=== PATIENT | male | born 1940 | race Caucasian/White ===

== ENCOUNTER 2017-06-28 09:15 | Outpatient (CLI) | payer MEDICARE, OTHER | END 2017-06-28 09:16 | disposition short-term general hospital (02) | LOC: EMS 09:15 | PROVIDERS: ATTEND Surgery | DX: R10.9 Unspecified abdominal pain (principal) | CPT/HCPCS: A0425; A0427 ==

== ENCOUNTER 2019-07-03 10:02 | Outpatient (CLI) | payer OTHER, MEDICARE ==
[2019-07-03 14:08] VITALS: BP 110/70
--- NOTE | 2019-07-03 14:08 | SLEEP CARE CONSULTATION ---
Information from patient questionnaire entered by Sylvia Caicedo. I have reviewed and concur with the information entered by Sylvia Caicedo. This document represents the service I personally performed and the decisions made by me, Claudia Lemus MD, [facility]. History of Present Illness Reason for Visit: New patient Chief Complaint: reports: Excessive daytime sleepiness, Fatigue Duration of Symptoms: 2 years Usual bedtime: 9:00 pm Time it takes to fall asleep: 30 minutes Observed to quit breathing while asleep: Yes Sleeps alone due to snoring: No Number of times waking at night: 3 Reasons for waking at night: reports: Pain, Bathroom Toss, Turn, or Twitch while sleeping: No Recalls having dreams: Yes Usually gets out of bed at: 9:00am Feels refreshed in the morning: No Morning headache: No Sleepy or fatigued during the day: Yes Ever fallen asleep while driving: No Takes day naps: Yes Dreams during day naps: No Prior sleep studies: No Additional HPI information: I had the pleasure of seeing Mr. Foss along with his today regarding the possibility of him having a sleep disorder. As you know, he is a 79 year old gentleman who complains of insomnia. He reports lying awake in bed at night for many hours. He naps 2 3 hours during the day. He had a sleep study at [facility] many years ago that ended prematurely because he had to be transported to the emergency room due to a heart condition. Normally, he goes to bed at 9 pm and gets out of bed at 8 am. He acts out dreams. He has been told that he snores loudly and irregularly at night. He has also been observed to stop breathing in his sleep. His can still sleep in the same bed. He can recall waking up on the average of 3 times during the night. Most of the time he wakes up because of having to use the bathroom. He has never awakened because of his own snoring, choking, or having to gasp for air. During the day he complains of feeling sleepy and fatigued. He has never fallen asleep while driving nor has had any accident due to sleepiness. - Parasomnia Symptoms Ever acted out dreams in sleep: Yes Problems with memory or concentration: Yes Subjective Initial Garland Sleepiness Scale score: 6 Past Medical History Past Medical History: reports: Hypertension, Coronary Heart Disease, Arrythmia, Anxiety, Depression, GERD, Other (E.D.) Social History The patient's occupation is a RE. Patient is and lives in [place]. Have you smoked in the past 12 months: Yes Cigarettes per day (20/pack): 20 (or more) Years of smokin (6-7) Quit date: 1976 Smoking Pack Years: 7.0 Alcohol use: No Caffeine use: Yes Caffeine amount and frequency: 2 cups Allergies and Home Medications Home medication list reviewed: Yes Allergy and home medication list: Medications: gabapentin, prazosin, trazodone, omeprazole, aspirin, escitalopram, diltiazem CD, alfuzosin, Bactrim Review of Systems Cardiovascular: reports: high blood pressure Gastrointestinal: reports: heartburn Urinary: reports: incontinence, impotence Neurological: reports: disorientation Psychiatric: reports: Attention Deficit Hyperactivity, anxiety, depression, mood disorder Ear/Nose/Throat: reports: dry mouth/throat Endocrine: reports: sluggishness, unexplained weakness Musculoskeletal: reports: joint pain, back pain Immunologic: reports: allergies to food or environment (crab meat) Physical Exam Vital signs obtained and entered by: Dr. Lemus Blood Pressure: 110/70 Cuff size: regular Heart Rate: 71 O2 Saturation: 95 Height: 5 ft 10 in Weight (kg): 90.718 kg Body Mass Index: 28.7 BMI Classification: Overweight Neck circumference: 16.5 HEENT: No craniofacial malformation Nostrils: patent to airflow Turbinates: normal Septum: midline Mouth and throat: narrow oropharynx Soft palate: long Hard palate: normal Uvula: normal Uvula visualization: 50% Mallampati Class II Tongue: normal in size Tonsils: small Chin and jaw: normal size and position Neck: normal w/o lymphadenopathy or thyromegaly Heart: regular rate and rhythm Lungs: clear bilaterally Abdomen: soft Extremities: no edema or clubbing Neurologic: intact Impression and Plan IMPRESSION: 1. Obstructive Sleep Apnea-Hypopnea Syndrome, as suggested by history of loud and irregular snoring, observed cessation of breath while asleep, frequent awakenings during the night, unrefreshed sleep, cognitive impairment, and daytime hypersomnolence. Narrow oropharynx and obesity are common predisposing factors for obstructive sleep apnea-hypopnea syndrome. Obstructive sleep apnea, left untreated, can increase the risk of recurrent paroxysmal atrial fibrillation. Pathophysiology of sleep-disordered breathing was discussed. I recommend proceeding to polysomnography to confirm the diagnosis and to assess severity. If he has significant sleep disordered breathing, a manual CPAP titration study will also be performed to find the optimal treatment pressure. I informed the patient of what the sleep studies involve and after some discussion, he agreed to proceed. Plan: 1. Schedule polysomnography + manual CPAP titration study and return in 1 to 2 weeks after the study to discuss result and initiate therapy. 2. Avoid long distance driving or when feeling sleepy. 3. Avoid alcohol, sedative and muscle relaxant around bedtime. 4. Attempt to lose weight. 5. Maintain a regular wake up time and spend no more than 8 hours in bed at night. Avoid naps. I spent 100% of this 15 minute visit face to face with the patient with greater than 50% of this was spent time counseling the patient and coordination of care.
== END 2019-07-03 10:03 | disposition home or self-care (01) ==
LOC: SC 10:02
PROVIDERS: ATTEND Internal Medicine Pulmonary Disease
DX: G47.10 Hypersomnia, unspecified (principal); R06.81 Apnea, not elsewhere classified; G47.8 Other sleep disorders; R06.83 Snoring; R41.89 Other symptoms and signs involving cognitive functions and awareness
CPT/HCPCS: 99203; 99212

== ENCOUNTER 2019-07-27 19:44 | Outpatient (CLI) | payer OTHER, MEDICARE | END 2019-07-27 19:45 | disposition home or self-care (01) | LOC: SC 19:44 | PROVIDERS: ATTEND Internal Medicine Pulmonary Disease | DX: G47.33 Obstructive sleep apnea (adult) (pediatric) (principal); G47.61 Periodic limb movement disorder | CPT/HCPCS: 95810 ==

== ENCOUNTER 2019-09-05 09:42 | Outpatient (CLI) | payer OTHER, MEDICARE ==
--- NOTE | 2019-09-05 10:17 | SLEEP CARE CONSULTATION ---
Information from patient questionnaire entered by Sylvia Caicedo. I have reviewed and concur with the information entered by Sylvia Caicedo. This document represents the service I personally performed and the decisions made by me, Claudia Lemus MD, [facility]. History of Present Illness Initial Winston Sleepiness Scale score: 6 Current Winston Sleepiness Scale score: 2 Additional HPI information: HPI: Mr. Foss returned with his for follow up of the sleep study he had on 07/27/19. The polysomnography showed that the patient had normal sleep efficiency. The sleep architecture was abnormal for sleep fragmentation and reduced amount of time spent in slow wave sleep (N3). Respiratory monitoring showed severe obstructive sleep apnea-hypopnea (AHI = 45.4) associated with frequent arousals, oxyhemoglobin desaturation and moderate hypoxia (momo oxygen saturation of 77%). Baseline oxygen saturation was normal. The respiratory events occurred independently of sleep stage and body position. (supine AHI = 48.7; non-supine = 42.76). Snore was loud in intensity. There was moderate periodic leg movement of sleep not contributing to the sleep fragmentation. Cardiac rhythm was paced at 70 beats per minute. The patient had tremors and limb movement throughout the night, most related to the respiratory events. The patient was informed of these findings. I explained to him the pathophysiology behind obstructive sleep apnea. We then spent quite a bit of time discussing different treatment options. For mild obstructive sleep apnea, surgery and oral appliance are alternatives to nasal CPAP therapy but in moderate or severe cases, nasal CPAP is the most effective and reliable treatment. Weight loss in an obese individual is strongly recommended. After some discussion, he opted to go with the nasal CPAP therapy. I explained to him how CPAP machine works and what to expect when using the machine. Allergies and Home Medications Drug allergies reviewed: Yes Home medication list reviewed: Yes Review of Systems Review of systems same as previous: Yes Physical Exam Weight: 200 lb Impression and Plan IMPRESSION: 1. Obstructive Sleep Apnea-Hypopnea Syndrome, very severe, associated with moderate hypoxemia and sleep fragmentation. Obviously this is the cause of the patients symptoms of unrefreshed sleep, cognitive impairment, and excessive daytime sleepiness. He will return for a manual CPAP/BiPAP titration study. PLAN: 1. Schedule a manual CPAP/BiPAP titration study. 2. Attempt to lose some weight and avoid alcohol consumption near bedtime. 3. Avoid driving (he does not drive at the present). 4. Return for follow up after the sleep study. I spent 100% of this 20 minute visit face to face with the patient with greater than 50% of this was spent time counseling the patient and coordination of care.
== END 2019-09-05 09:43 | disposition home or self-care (01) ==
LOC: SC 09:42
PROVIDERS: ATTEND Internal Medicine Pulmonary Disease
DX: G47.33 Obstructive sleep apnea (adult) (pediatric) (principal)
CPT/HCPCS: 99212; 99213

== ENCOUNTER 2019-12-01 20:25 | Outpatient (CLI) | payer OTHER, MEDICARE | END 2019-12-01 23:59 | disposition short-term general hospital (02) | LOC: EMS 20:25 | PROVIDERS: ATTEND Surgery | DX: R53.1 Weakness (principal); R29.6 Repeated falls; R42 Dizziness and giddiness | CPT/HCPCS: A0425; A0427 ==

== ENCOUNTER 2021-04-26 14:12 | Outpatient (CLI) | payer MEDICARE, OTHER | END 2021-04-26 14:13 | disposition critical access hospital (66) | LOC: EMS 14:12 | DX: R41.82 Altered mental status, unspecified (principal); S01.512A Laceration without foreign body of oral cavity, initial encounter; X58.XXXA Exposure to other specified factors, initial encounter | CPT/HCPCS: A0425; A0429 ==

== ENCOUNTER 2021-04-26 14:23 | Observation (INO) | payer MEDICARE, OTHER ==
--- NOTE | 2021-04-26 14:29 | ED Physician Documentation ---
PD HPI FOCAL NEURO - Stated complaint Stated Complaint: CODE STROKE - History obtained from History obtained from: Patient, Family, EMS - History of Present Illness Timing - onset: Enter time (1200), Today Timing - duration: Hours Timing - details: Abrupt onset, Still present Time of symptom onset unknown: Time of onset unknown Severity of deficit: Severe Weakness: Face, Arm, Hand, Leg, Foot, Left Associated symptoms: No: Headache, Nausea / vomiting, Seizure, Syncope, Head injury Baseline status: positive: A&OX3, ambulatory, indep Similar symptoms before: Has not had sx before Recently seen: Not recently seen - Additional information Additional information: 81-year-old male with history of coronary artery disease with a history of aortic stenosis s/p bovine valve replacement s/p CABG and s/p ablation has a pacer in place and today the was at his home his left to go to physical therapy at about 10 AM and she noted him to be in his usual state and when she returned at about 12:20 she noted that he was snoring loudly she went in to evaluate him found he had blood in his mouth and was not acting normal.She found that he was paralyzed on the left side and not speaking and she called 911. Medics arrived to find the patient with a left hemiparesis and blood on the outside of his mouth. He appears to have bit his tongue. Review of Systems Constitutional: denies: Fever Eyes: denies: Decreased vision Ears: denies: Ear pain Nose: denies: Congestion Throat: denies: Sore throat Cardiac: denies: Chest pain / pressure Respiratory: denies: Dyspnea, Cough GI: denies: Vomiting : denies: Dysuria Skin: denies: Rash Musculoskeletal: denies: Neck pain, Back pain, Extremity pain Neurologic: reports: Focal weakness, Difficulty speaking. denies: Generalized weakness, Headache PD PAST MEDICAL HISTORY - Present Medications Home Medications: Ambulatory Orders Medication Instructions Recorded Confirmed Alfuzosin HCl [Alfuzosin HCl ER] 1 tab PO DAILY 04/26/21 04/26/21 Aspirin [Aspirin EC] 1 tab PO DAILY 04/26/21 04/26/21 Cyanocobalamin (Vitamin B-12) 1 tab PO DAILY 04/26/21 04/26/21 [Vitamin B-12] Donepezil [Aricept] 10 mg PO DAILY 04/26/21 04/26/21 Escitalopram Oxalate 1 tab PO DAILY 04/26/21 04/26/21 Gabapentin [Neurontin] 100 mg PO BID 04/26/21 04/26/21 Latanoprost/Pf [Latanoprost 0.005% 1 drops TOP DAILY 04/26/21 04/26/21 Eye Drop] Omeprazole [PriLOSEC] 1 tab PO DAILY 04/26/21 04/26/21 Senna [Senokot] 1 tab PO DAILY PRN 04/26/21 04/26/21 diltiaZEM CD [Cardizem Cd] 1 tab PO DAILY 04/26/21 04/26/21 traZODone [Desyrel] 100 mg PO DAILY 04/26/21 04/26/21 - Allergies Allergies/Adverse Reactions: Allergies Allergy/AdvReac Type Severity Reaction Status Date / Time iodine Allergy Anaphylaxis Verified 04/26/21 15:09 crab meat Allergy Anaphylaxis Uncoded 04/26/21 15:09 PD ED PE NORMAL - Vitals Vital signs reviewed: Yes (Hypertensive) - General General: Well developed/nourished, Other (81-year-old male laying on a gurney looking to the right with blood on the left side of his mouth and he is minimally interactive.) - HEENT HEENT: Atraumatic, PERRL, EOMI - Neck Neck: Supple, no meningeal sign, No bony TTP - Cardiac Cardiac: RRR, No murmur - Respiratory Respiratory: No respiratory distress, Clear bilaterally - Abdomen Abdomen: Soft, Non tender - Back Back: No CVA TTP, No spinal TTP - Derm Derm: Normal color, Warm and dry, No rash - Extremities Extremities: No deformity, No edema - Neuro Eye Opening: Spontaneous Motor: Obeys Commands Verbal: Confused GCS Score: 14 - Psych Psych: Normal mood, Normal affect NIHSS - Time Time: 15:20 - Level of Consciousness Level of consciousness: (1) Not alert, but arousable by minor stimulation to obey, or answer LOC Questions: (0) Answers both Q's correct LOC Commands: (0) Performs both correctly - Gaze Best Gaze: (0) Normal - Visual Visual: (0) No loss - Facial Palsy Facial Palsy: (1) Minor paralysis - Motor Arms (both separate) Motor Arm (right): (0) No drift Motor Arm (left): (1) Drift - Motor Legs (both separate) Motor Leg (right): (0) No drift Motor Leg (left): (2) Some effort against gravity - Limb Ataxia Limb Ataxia: (1) Present in 1 limb - Sensory Sensory: (0) Normal - Best Language Best Language: (0) No aphasia - Dysarthria Dysarthria: (1) [id number] dysarthria - Extinction and Inattention (formally neg Extinction and inattention: (0) No abnormality - Total Score/Results Total Score/Result: 7 Results - Vitals Vitals: Vital Signs - 24 hr 04/26/21 04/26/21 04/26/21 15:01 15:50 16:17 Temperature 36.4 C L Heart Rate 88 83 82 Respiratory 16 17 21 Rate Blood Pressure 184/67 H 177/135 H 187/122 H O2 Saturation 93 95 97 Oxygen O2 Source Nasal cannula Oxygen Flow Rate 3 - EKG (time done) 1524 Rate: Rate (enter#) (85) Rhythm: Paced Compare to prior EKG: Old EKG unavailable Computer interpretation: Agree with computer - Labs Labs: Laboratory Tests 04/26/21 04/26/21 04/26/21 15:03 15:03 15:03 WBC 15.3 H RBC 4.67 L Hgb 14.9 Hct 42.2 MCV 90.4 MCH 31.9 H MCHC 35.3 RDW 12.8 Plt Count 145 MPV 10.8 Neut # (Auto) 14.1 H Lymph # (Auto) 0.5 L Gilliam # (Auto) 0.6 Eos # (Auto) 0.0 Baso # (Auto) 0.0 Absolute Nucleated RBC 0.00 Nucleated RBC % 0.0 PT 12.1 INR 1.1 Sodium 134 L Potassium 4.0 Chloride 101 Carbon Dioxide 23 Anion Gap 10.0 BUN 22 H Creatinine 1.4 H Estimated GFR (MDRD) 49 L Glucose 203 H Calcium 8.5 Total Bilirubin 0.7 AST 22 ALT 14 Alkaline Phosphatase 55 Total Protein 7.0 Albumin 4.1 Globulin 2.9 Albumin/Globulin Ratio 1.4 Lipase 29 Urine Color Urine Clarity Urine pH Ur Specific [place] Urine Protein Urine Glucose (UA) Urine Ketones Urine Occult Blood Urine Nitrite Urine Bilirubin Urine Urobilinogen Ur Leukocyte Esterase Urine RBC Urine WBC Ur Squamous Epith Cells Amorphous Sediment Urine Bacteria Urine Mucus Ur Microscopic Review Urine Culture Comments 04/26/21 16:04 WBC RBC Hgb Hct MCV MCH MCHC RDW Plt Count MPV Neut # (Auto) Lymph # (Auto) Gilliam # (Auto) Eos # (Auto) Baso # (Auto) Absolute Nucleated RBC Nucleated RBC % PT INR Sodium Potassium Chloride Carbon Dioxide Anion Gap BUN Creatinine Estimated GFR (MDRD) Glucose Calcium Total Bilirubin AST ALT Alkaline Phosphatase Total Protein Albumin Globulin Albumin/Globulin Ratio Lipase Urine Color YELLOW Urine Clarity CLEAR Urine pH 5.0 Ur Specific [place] 1.020 Urine Protein 30 H Urine Glucose (UA) 250 H Urine Ketones TRACE Urine Occult Blood SMALL H Urine Nitrite NEGATIVE Urine Bilirubin NEGATIVE Urine Urobilinogen 0.2 (NORMAL) Ur Leukocyte Esterase NEGATIVE Urine RBC 0-5 Urine WBC 0-3 Ur Squamous Epith Cells RARE Squamous Amorphous Sediment Rare Urine Bacteria None Seen Urine Mucus Few Strands Ur Microscopic Review INDICATED Urine Culture Comments NOT INDICATED - Rads (name of study) neck CTA Radiology: Prelim report reviewed (: 1. Moderate stenosis of the proximal left internal internal carotid artery. Mild stenosis of the proximal right internal carotid artery. No high-grade stenosis or occlusion of the vertebral arteries bilaterally), EMP read indepedently, See rad report head CTA Radiology: Prelim report reviewed (1. No acute intracranial abnormality. Cerebral volume loss and chronic microvascular ischemic disease. No high-grade stenosis or occlusion in anterior or posterior circulations.), EMP read indepedently, See rad report Chest Radiology: Prelim report reviewed (Impression: No acute cardiopulmonary disease.), EMP read indepedently, See rad report Procedures - IVC sono (time) 1515 Bedside IVC sono: IVC measures (cm) (1.00), Dehydration (est 1-2 liter deficit) PD MEDICAL DECISION MAKING - ED course Complexity details: considered differential, d/w patient, d/w family, d/w human performance consultant (Souleymane neuro-telestroke: Recommends conservative treatment and CT angio of the head and neck for potential large vessel occlusion. Contraindicated TPA as he is out of the stroke window. 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 He did bite his tongue consistent with possibility of seizure. I discussed the case with the stroke Dr. (Souleymane) and she recommends we place the patient on stroke care here at this hospital as there is no specific intervention indicated. The patient is reevaluated at 1615 with a marked improvement in his NIH stroke scale. He does still have some inattention to detail and appears to have some delay in execution of motor commands. He does have some a dementia at baseline the indicates he is not back to his complete baseline. Departure - Departure Disposition: ED Place in Observation Clinical Impression: Stroke-like symptoms, Seizure Discharge Date/Time: 04/26/21 18:36 NIHSS - Level of Consciousness Level of consciousness: (0) Alert, Keenly responsive LOC Questions: (1) Answers one Q correctly LOC Commands: (0) Performs both correctly - Gaze Best Gaze: (0) Normal - Visual Visual: (0) No loss - Facial Palsy Facial Palsy: (0) Normal, symmetrical movement - Motor Arms (both separate) Motor Arm (right): (0) No drift Motor Arm (left): (0) No drift - Motor Legs (both separate) Motor Leg (right): (0) No drift Motor Leg (left): (0) No drift - Limb Ataxia Limb Ataxia: (0) Absent - Sensory Sensory: (0) Normal - Best Language Best Language: (0) No aphasia - Dysarthria Dysarthria: (0) Normal - Extinction and Inattention (formally neg Extinction and inattention: (1) Visual,tactile,auditory,spatial, or personal inattention - Total Score/Results Total Score/Result: 2
[2021-04-26] MEDS ORDERED: IOVERSOL 320 100 ML VIAL IVP ONE (15:03)
--- NOTE | 2021-04-26 15:09 | XRAY Report ---
PROCEDURE: Chest 1 View X-Ray INDICATIONS: chest pain TECHNIQUE: One view of the chest was acquired. COMPARISON: Chest x-ray report, 05/10/2012. FINDINGS: Surgical changes and devices: There is a cardiac pacemaker in appropriate position. Sternotomy and CA BG. Lungs and pleura: No pleural effusions or pneumothorax. Lungs are clear. Mediastinum: Mediastinal contours appear normal. Heart size is normal. Bones and chest wall: No suspicious bony lesions. Overlying soft tissues appear unremarkable. IMPRESSION: No acute cardiopulmonary disease. Reviewed by: Jonh Padilla MD on 04/26/2021 3:08 PM PDT Approved by: Jonh Padilla MD on 04/26/2021 3:08 PM PDT Station ID: [id number]
[2021-04-26] MEDS ORDERED: SODIUM CHLORIDE 0.9% 1,000 ML IV STA (15:10)
[2021-04-26 15:16] LABS: BASOPHILS % (AUTO) 0.2 %; HCT - HEMATOCRIT 42.2 % (42.0-52.0); HGB - HEMOGLOBIN 14.9 g/dL (14.0-18.0); LYMPHOCYTES # (AUTO) 0.5 10^3/uL (1.5-3.5); MEAN CORPUSCULAR HEMOGLOBIN 31.9 pg (27.0-31.0); MEAN CORPUSCULAR HGB CONC 35.3 g/dL (32.0-36.0); MEAN CORPUSCULAR VOLUME 90.4 fL (80.0-94.0); MEAN PLATELET VOLUME 10.8 fL (7.4-11.4); MONOCYTES # (AUTO) 0.6 10^3/uL (0.0-1.0); MONOCYTES % (AUTO) 3.8 %; NEUTROPHILS # (AUTO) 14.1 10^3/uL (1.5-6.6); PLT - PLATELET COUNT 145 10^3/uL (130-450); RED BLOOD COUNT 4.67 10^6/uL (4.70-6.10); RED CELL DISTRIBUTION WIDTH 12.8 % (12.0-15.0); WHITE BLOOD COUNT 15.3 x10^3/uL (4.8-10.8)
[2021-04-26 15:27] LABS: ALBUMIN 4.1 g/dL (3.2-5.5); ALBUMIN/GLOBULIN RATIO 1.4 (1.0-2.2); BILIRUBIN,TOTAL 0.7 mg/dL (0.2-1.0); CALCIUM 8.5 mg/dL (8.5-10.3); CREATININE 1.4 mg/dL (0.6-1.2)
--- NOTE | 2021-04-26 15:39 | CT Report ---
PROCEDURE: ANGIO HEAD W/WO INDICATIONS: L sided facial droop CONTRAST: IV CONTRAST: Optiray 320 ml: 80 PO CONTRAST: *NO PO CONTRAST TECHNIQUE: Precontrast 4.5 mm thick angled axial sections acquired from the foramen magnum to the vertex. Afte r the administration of intravenous contrast, 1 mm thick sections acquired through the [place] of [place] is. Postcontrast 4.5 mm thick sections then re-acquired from the foramen magnum to the vertex. 3-di mensional pxtjuol-sbywxrcdn-dxvdccjrqi (MIP) and/or volume rendering reformats were acquired of the c entral intracranial vasculature. For radiation dose reduction, the following was used: automated ex posure control, adjustment of mA and/or kV according to patient size. COMPARISON: Not available. FINDINGS: Image quality: Suboptimal due to motion artifacts. Anterior circulation: Intracranial internal carotid arteries are normal in size and flow. The flow within the paired anterior cerebral arteries is normal and symmetric. The flow within the middle cer ebral arteries is normal and symmetric. The anterior communicating artery is seen. No aneurysms are seen. Posterior circulation: Visualized portions of the vertebral arteries demonstrate normal caliber, and join to form a normal appearing basilar artery. Flow within the posterior cerebral arteries is norm al and symmetric. No aneurysms are seen. CSF spaces: Ventricles are normal in size and shape. Basal cisterns are patent. No extra-axial flu id collections. Brain: There is mild cerebral volume loss. Small foci of hypodensities in insular cortex are most li shelli old chronic small vessel ischemic change. No midline shift. No intracranial bleeds or masses. Skull and face: Calvarium and facial bones appear intact, without suspicious lesions. Sinuses: Bilaterally maxillary sinus mucus retention cysts.. IMPRESSION: 1. No acute intracranial abnormality. 2. Cerebral volume loss and chronic microvascular ischemic disease. 3. No high-grade stenosis or occlusion in anterior or posterior circulations. Reviewed by: Jonh Padilla MD on 04/26/2021 3:38 PM PDT Approved by: Jonh Padilla MD on 04/26/2021 3:38 PM PDT Station ID: [id number]
--- NOTE | 2021-04-26 15:39 | CT Report ---
PROCEDURE: ANGIO NECK W INDICATIONS: L sided facial droop, L neck pain CONTRAST: IV CONTRAST: Optiray 320 ml: 80 PO CONTRAST: *NO PO CONTRAST TECHNIQUE: After the administration of intravenous contrast, 1.5 mm axial sections acquired from the aortic arch to the [place] of [place]. Coronal 3-D maximum intensity projection (MIP) and/or volume rendering ref ormats were then performed. For radiation dose reduction, the following was used: automated exposur e control, adjustment of mA and/or kV according to patient size. COMPARISON: None. FINDINGS: Image quality: Suboptimal opacification of neck vessels. Motion artifacts are present. Carotid system: The great vessels demonstrate a conventional anatomy as they arise from the aortic a rch. The origins of the common carotid arteries appear patent. The common carotid arteries demonstr ate normal calibers and courses. There are calcified and soft plaques with focal thickening at the ca rotid bifurcations bilaterally. There is moderate stenosis (~50-60%) of the proximal left internal ca rotid artery just beyond the bifurcation. Mild stenosis of the right proximal internal carotid artery (~20%). Bifurcation regions appear normal bilaterally. The internal carotid arteries demonstrate no rmal caliber and course. Posterior circulation: The origins of the vertebral arteries appear patent. The more superior porti ons of the vertebral arteries demonstrate normal course and caliber. They join to form a normal appe aring basilar artery. Soft tissues: Visualized neck soft tissues demonstrate no suspicious abnormalities. The thyroid is normal in size and there are no incidental findings. Bones: No suspicious bony lesions. Visualized cervical spine appears normally aligned. Moderate t o severe degenerative disc disease in the lower cervical spine. IMPRESSION: 1. 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 2. Mild stenosis of the proximal right internal carotid artery. 3. No high-grade stenosis or occlusion in vertebral arteries bilaterally. The estimate of stenosis included in the report of the imaging study was calculated using the NASCET method CLINICAL RECOMMENDATION STATEMENTS: In patients <35 years with an ITN detected on CT, MRI, or extrathyroidal ultrasound, the Committee re commends further evaluation with dedicated thyroid ultrasound if the nodule is ?1 cm and has no suspi cious imaging features, and if the patient has normal life expectancy. In patients ?35 years with an ITN detected on CT, MRI, or extrathyroidal ultrasound, the Committee re commends further evaluation with dedicated thyroid ultrasound if the nodule is ?1.5 cm and has no adina picious imaging features, and if the patient has normal life expectancy. (ACR, 2014) Reviewed by: oJnh Padilla MD on 04/26/2021 3:37 PM PDT Approved by: Jonh Padilla MD on 04/26/2021 3:37 PM PDT Station ID: [id number]
[2021-04-26 16:25] LABS: BILIRUBIN,URINE NEGATIVE (NEGATIVE); CLARITY,URINE CLEAR (CLEAR); GLUCOSE, URINE (UA) 250 mg/dL (NEGATIVE); KETONES,URINE (UA) TRACE mg/dL (NEGATIVE); LEUKOCYTE ESTERASE, URINE NEGATIVE (NEGATIVE); NITRITE,URINE NEGATIVE (NEGATIVE); OCCULT BLOOD,URINE SMALL (NEGATIVE); PROTEIN,URINE 30 mg/dL (NEGATIVE); UROBILINOGEN,URINE 0.2 (NORMAL) E.U./dL (NORMAL)
[2021-04-26 16:30] LABS: AMORPHOUS SEDIMENT,UR Rare /LPF; BACTERIA,URINE None Seen /HPF (None Seen); MUCUS,URINE Few Strands; RBC,URINE 0-5 /HPF (0-5); SQUAMOUS EPITHELIAL CELL,UR RARE Squamous (<= Few); WBC,URINE 0-3 /HPF (0-3)
[2021-04-26] MEDS ORDERED: ACETAMINOPHEN 325 MG TABLET PO PRN (16:43)
[2021-04-26] MEDS ORDERED: SODIUM CHLORIDE FLUSH 0.9% 10 ML SYRINGE IVP PRN (16:43)
[2021-04-26] MEDS ORDERED: ONDANSETRON 4 MG/2 ML VIAL IVP PRN (16:43)
--- NOTE | 2021-04-26 16:57 | HISTORY & PHYSICAL EXAMINATION ---
Chief Complaint - Chief Complaint Chief Complaint: Left sided weakness. History of Present Illness - Admitted From Admitted From:: Home - History Obtained From Records Reviewed: Yes History obtained from: Patient, Spouse, ER Physician, EMR Exam Limitations: Patient is somewhat confused and unable to provide a meaningful history. - History of Present Illness HPI Comment/Other: This is a 81-year-old male with a past medical history significant for coronary artery disease status post CABG, aortic stenosis status post valve replacement, atrial fibrillation status post pacemaker, dementia who presents today after his found him minimally responsive at home this morning. The history is obtained from the patient's as he still appears somewhat confused and unable to provide a meaningful history. She states she went to physical therapy this morning at 10 AM and when she returned home, she found the patient quite lethargic and barely responsive. He was looking at her with a blank stare. She noticed that his mouth was covered with blood and that he had bit his tongue. She immediately called EMS and upon their arrival, they noticed that he had left-sided upper and lower extremity weakness and the concern was for a stroke. The patient's tells me that in hindsight, he appeared to be fatigued over the past couple of days. She states his last meal was yesterday evening. He has had no changes in his medications. No prior history of seizures or stroke. He did not take aspirin this morning as he normally does. He has never been on anticoagulation for his atrial fibrillation. The patient is normally independent and ambulates on his own. He does have early mild dementia. The patient currently denies any pain. He reports no dyspnea, chest pain. He is able to tell me he is at the hospital but cannot tell me why. In the emergency department, he underwent a CT of the head which showed no intracranial hemorrhage. 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 Neurology was contacted and he was not a candidate for TPA given he was outside of the window. Given the above findings, medicine was consulted for admission. We did discuss goals of care and the patient was unable to come up with a decision. I discussed this with him and his that we will make him a full code for the time being given he cannot decide. History - Past Medical History Cardiovascular: reports: Hypertension, Coronary artery disease, Atrial fibrillation Neuro: reports: Dementia : reports: Benign prostate hypertrophy Psych: reports: Depression Other Past Medical History: cardia ablation - Past Surgical History Cardiovascular: reports: CABG, Valve replacement, Pacemaker - Family & Social History Family History Comment/Other: To his 's knowledge, his mother had a history of dementia and she believes his grandmother had a stroke. Living arrangement: At home Living Situation: With spouse/s.o. Social History Notes: He lives at home with his , Cat. He is a retired EMT. He has remote smoking history but quit in the . He rarely drinks alcohol. Meds/Allgy - Home Medications Home Medications: Ambulatory Orders Medication Instructions Recorded Confirmed Alfuzosin HCl [Alfuzosin HCl ER] 1 tab PO DAILY 04/26/21 04/26/21 Aspirin [Aspirin EC] 1 tab PO DAILY 04/26/21 04/26/21 Cyanocobalamin (Vitamin B-12) 1 tab PO DAILY 04/26/21 04/26/21 [Vitamin B-12] Donepezil [Aricept] 10 mg PO DAILY 04/26/21 04/26/21 Escitalopram Oxalate 1 tab PO DAILY 04/26/21 04/26/21 Gabapentin [Neurontin] 100 mg PO BID 04/26/21 04/26/21 Latanoprost/Pf [Latanoprost 0.005% 1 drops TOP DAILY 04/26/21 04/26/21 Eye Drop] Omeprazole [PriLOSEC] 1 tab PO DAILY 04/26/21 04/26/21 Senna [Senokot] 1 tab PO DAILY PRN 04/26/21 04/26/21 diltiaZEM CD [Cardizem Cd] 1 tab PO DAILY 04/26/21 04/26/21 traZODone [Desyrel] 100 mg PO DAILY 04/26/21 04/26/21 - Allergies Allergies/Adverse Reactions: Allergies Allergy/AdvReac Type Severity Reaction Status Date / Time iodine Allergy Anaphylaxis Verified 04/26/21 15:09 crab meat Allergy Anaphylaxis Uncoded 04/26/21 15:09 Review of Systems - Cardiovascular Cariovascular: denies: Chest pain, Exertional dyspnea, Decr. exercise tolerance - Gastrointestinal Gastrointestinal: denies: Abdominal pain, Nausea, Vomiting - Neurological Neurological: denies: General weakness, Focal weakness - All Other Systems All Other Systems: reports: Other (Review of systems is limited due to his confusion.) Prior Level of Functionality: He ambulates on his own at baseline. He does have mild dementia. Exam - Vital Signs Reviewed Vital Signs: Yes Vital Signs: Vital Signs x48h Temp Pulse Resp BP Pulse Ox 04/26/21 15:50 83 17 177/135 H 95 04/26/21 15:01 36.4 C L 88 16 184/67 H 93 - Physical Exam General Appearance: positive: No acute distress, Alert Eyes Bilateral: positive: Normal inspection, PERRL, EOMI, Conjunctivae nml ENT: positive: ENT inspection nml, Other (There is dried blood noted over his tongue. There is a small laceration over his tongue without active bleeding.) Neck: positive: Nml inspection Respiratory: positive: No respiratory distress. negative: Wheezes, Rales Cardiovascular: positive: Regular rate & rhythm, No murmur. negative: Tachycardia Abdomen: positive: Non-tender, No distention. negative: Tenderness Skin: positive: Warm, Dry Extremities: positive: No pedal edema Neurologic/Psychiatric: positive: Motor nml, Sensation nml, Disoriented to time, Other (He has 5 out of 5 motor strength in all of his extremities. No dysmetria noted). negative: Disoriented to person, Disoriented to place, Facial droop, Slurred/abnml speech Conclusion/Plan - Problem List (1) Stroke-like symptoms Conclusion/Plan: He presented with left upper and lower extremity weakness along with a facial droop. He was not a candidate for TPA given he was outside of the timeframe. 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 There is no evidence of hemorrhage. It is unclear at this time if he had a stroke or if this was Delbert's paralysis after a seizure. He has no focal deficits but is somewhat confused which could be a postictal state. We will place in observation. We cannot obtain an MRI due to the pacemaker. Given he did not take aspirin's morning, we will administer a full dose aspirin. Start him on statin. We will allow for permissive hypertension. We will repeat a CT tomorrow to look for development of an infarct. There is no echocardiogram available over the weekend but this will be recommended on an outpatient basis. Will monitor on telemetry. (2) Seizure Conclusion/Plan: There is concern for a possible seizure given there was bleeding from his mouth and it appears he bit his tongue. This may potentially cause a Delbert's paralysis and given his strokelike symptoms. CT revealed no acute abnormalities. We will consider repeating a CT tomorrow to evaluate for possible infarct. We will monitor his neuro status overnight. Seizure precautions. Given this is his first seizure, we will hold off on antiepileptics. (3) History of atrial fibrillation Conclusion/Plan: He is on diltiazem at home and has a pacemaker in place. We will hold diltiazem until after permissive hypertension. Monitor on telemetry. (4) Dementia Conclusion/Plan: Stable and at baseline. We will continue his home donepezil. (5) History of aortic valve replacement Conclusion/Plan: Stable. If he remains hospitalized until Wednesday we will obtain echocardiogram then otherwise this can be done on an outpatient basis. (6) BPH (benign prostatic hyperplasia) Conclusion/Plan: Will resume his home medications when appropriate. - Lab Results Lab results reviewed: Yes Carmelo Bones: 04/26/21 15:03 04/26/21 15:03 - Diagnostic Imaging Results Diagnostic Imaging Results: positive: Final report reviewed - EKG Results EKG Interpreted Independently: Yes EKG Findings: V paced. Core Measures - Anticipated LOS I expect patient to be DC'd or transferred within 96 hours.: Yes - Issues Hospital Issues and Management Plan: 81-year-old male presents with left-sided weakness and possible seizure. Concern is for stroke or Delbert's paralysis. Will place in observation to monitor his neuro status and repeat a CT in the morning. - DVT/VTE - Prophylaxis VTE/DVT Device ordered at admit?: Yes VTE/DVT Prophylaxis med ordered at admit?: Yes
[2021-04-26] MEDS ORDERED: SENNA 8.6 MG TABLET PO PRN (17:00)
--- OUTSIDE RECORDS SUMMARY | 2021-04-26 17:07 | EXTERNAL MEDICAL SUMMARY RPT | Continuity of Care Document ---
:1940 Demographics Phone Unavailable Preferred Language Unknown Marital Status Unknown Uatsdin Affiliation Unknown Race Unknown Ethnic Group Unknown Author Organization [facility] Address [address] [phone] Phone Allergies Encounters Medications Problems Results
[2021-04-26] MEDS ORDERED: ASPIRIN CHEW 81 MG TABLET PO STA (17:55)
[2021-04-26 18:39] LABS: INR 1.1 (0.8-1.2); PT - PROTHROMBIN TIME 12.1 secs (9.9-12.6)
[2021-04-26] MEDS: SODIUM CHLORIDE FLUSH 0.9% 10 ML SYRINGE IVP SCH (20:10)
[2021-04-26 20:11] LABS: B. PARAPERTUSSIS- RESP PCR PAN NOT DETECTED; B. PERTUSSIS- RESP PCR PANEL NOT DETECTED; C. PNEUMONIAE- RESP PCR PANEL NOT DETECTED; CORONAVIRUS 229E-RESP PCR NOT DETECTED; CORONAVIRUS HKU1-RESP PCR NOT DETECTED; CORONAVIRUS NL63-RESP PCR NOT DETECTED; CORONAVIRUS OC43-RESP PCR NOT DETECTED; HUMAN METAPNEUMOVIRUS NOT DETECTED; INFLUENZA A- RESP PCR PANEL NOT DETECTED; INFLUENZA B - RESP PCR PANEL NOT DETECTED; M. PNEUMONIAE- RESP PCR PANEL NOT DETECTED; PARAINFLUENZA VIRUS 1 NOT DETECTED; PARAINFLUENZA VIRUS 2 NOT DETECTED; PARAINFLUENZA VIRUS 3 NOT DETECTED; PARAINFLUENZA VIRUS 4 NOT DETECTED; RHINOVIRUS/ENTEROVIRUS NOT DETECTED; RSV- RESP PCR PANEL NOT DETECTED; SARS-CoV-2 -RESP PCR PANEL NOT DETECTED
[2021-04-26] MEDS: LACTATED RINGERS 1,000 ML IV SCH (20:24)
[2021-04-26] MEDS ORDERED: GABAPENTIN 100 MG CAPSULE PO SCH (21:00)
[2021-04-26] MEDS ORDERED: ATORVASTATIN 40 MG TABLET PO SCH (21:00)
[2021-04-26] MEDS ORDERED: LATANOPROST 0.005% OPHTH DROPS EACHEYE SCH (21:00)
[2021-04-27] MEDS: SODIUM CHLORIDE FLUSH 0.9% 10 ML SYRINGE IVP SCH ×2 (03:37→09:58)
[2021-04-27 05:24] LABS: BASOPHILS % (AUTO) 0.2 %; EOSINOPHILS % (AUTO) 0.1 %; HCT - HEMATOCRIT 36.8 % (42.0-52.0); HGB - HEMOGLOBIN 12.8 g/dL (14.0-18.0); LYMPHOCYTES # (AUTO) 1.1 10^3/uL (1.5-3.5); MEAN CORPUSCULAR HEMOGLOBIN 31.9 pg (27.0-31.0); MEAN CORPUSCULAR HGB CONC 34.8 g/dL (32.0-36.0); MEAN CORPUSCULAR VOLUME 91.8 fL (80.0-94.0); MEAN PLATELET VOLUME 10.7 fL (7.4-11.4); MONOCYTES # (AUTO) 0.5 10^3/uL (0.0-1.0); MONOCYTES % (AUTO) 4.5 %; NEUTROPHILS # (AUTO) 9.5 10^3/uL (1.5-6.6); NEUTROPHILS % (AUTO) 84.8 %; PLT - PLATELET COUNT 137 10^3/uL (130-450); RED BLOOD COUNT 4.01 10^6/uL (4.70-6.10); WHITE BLOOD COUNT 11.2 x10^3/uL (4.8-10.8)
[2021-04-27 05:29] LABS: CALCIUM 8.5 mg/dL (8.5-10.3); CREATININE 1.4 mg/dL (0.6-1.2); MAGNESIUM 2.2 mg/dL (1.7-2.8); POTASSIUM 3.9 mmol/L (3.5-5.0)
[2021-04-27] MEDS: LACTATED RINGERS 1,000 ML IV SCH (06:54)
[2021-04-27] MEDS ORDERED: PANTOPRAZOLE 40 MG TABLET PO SCH (07:00)
--- NOTE | 2021-04-27 07:22 | PHARMACY PROGRESS NOTE ---
- Best Possible Medication History Admit Date and Time: 04/26/21 2933 Processed by: Nursing Medication History completed: Yes Patient Interview: Pt interview ONLY source As the person ultimately responsible for medication therapy, providers are able to order a medication from an existing home medication list in [facility] via the "Reconcile Routine" prior to Confirmation of that medication by learning support services director. Such practice is discouraged except when the physician, in their clinical judgment, deems that a medical need exists for a medication without regard to previous use.
[2021-04-27] MEDS ORDERED: DONEPEZIL 5 MG TABLET PO SCH (09:00)
[2021-04-27] MEDS ORDERED: GABAPENTIN 100 MG CAPSULE PO SCH (09:00)
[2021-04-27] MEDS ORDERED: traZODone 50 MG TABLET PO SCH ×2 (09:00→21:00)
[2021-04-27] MEDS ORDERED: ENOXAPARIN 40 MG/0.4 ML SYRINGE SUBQ SCH (09:00)
[2021-04-27] MEDS ORDERED: ESCITALOPRAM 10 MG TABLET PO SCH (09:00)
[2021-04-27] MEDS ORDERED: ASPIRIN EC 325 MG TABLET PO SCH (12:00)
--- NOTE | 2021-04-27 13:33 | CT Report ---
PROCEDURE: HEAD WO INDICATIONS: Neuro deficit. Resolved. Eval for stroke. TECHNIQUE: Noncontrast 4.5 mm thick angled axial sections acquired from the foramen magnum to the vertex. For r adiation dose reduction, the following was used: automated exposure control, adjustment of mA and/or kV according to patient size. COMPARISON: 04/26/2021 FINDINGS: Image quality: Motion artifact is noted. CSF spaces: Basal cisterns are patent. No extra-axial fluid collections. Ventricles are normal in size and shape. Brain: No midline shift. No intracranial masses or hemorrhage. Borges-white matter interface is norm al. Age-appropriate brain parenchymal volume loss and chronic small vessel ischemic change can be se en. 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 Skull and face: Calvarium and visualized facial bones are intact, without suspicious lesions. Sinuses: Visualized sinuses and mastoids are clear. IMPRESSION: Stable noncontrast head CT. If there is strong clinical concern for a stroke, please consider a dedicated brain MRI for further e valuation (assuming that there is no contraindication to MRI). Reviewed by: Yuri Adorno MD on 04/27/2021 12:31 PM HUGO Approved by: Yuri Adorno MD on 04/27/2021 12:31 PM HUGO Station ID: [id number]
[2021-04-27] MEDS ORDERED: levETIRAcetam 250 MG TABLET PO SCH (14:00)
--- NOTE | 2021-04-27 14:01 | Discharge Plan ---
Discharge Plan Problem Reviewed?: Yes Disposition: Home, Self Care Condition: Stable Prescriptions: levETIRAcetam [Keppra] 500 mg PO BID #120 tablet Diet: Cardiac Activity Restrictions: Activity as Tolerated Instruction Topics: Levetiracetam tablets Health Concerns: You were admitted to the hospital initially because of concern for a stroke. 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 Fortunately, your deficits have resolved and you are now nearly back to your baseline. We did speak with neurology at [facility] who recommend starting you on Keppra 500 mg twice a day as this may have been possibly a seizure that caused this. We did repeat a CT scan of your head today which showed evidence of an old stroke but no acute stroke. 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 This should be followed up by your neurologist and a vascular surgery consult may be recommended. Plan of Treatment: We started you on a medication called Keppra which is to help prevent seizures. Please take 500 mg twice a day. Please follow-up with your neurologist as soon as possible. It would be a good idea to discuss trying a statin again given you had side effects in the past. You may also consider talking with your clay washer about switching the diltiazem to metoprolol. Care Goals: The goal is to prevent further seizures and to decrease your risk of stroke. Assessment: The patient's expressed understanding of the treatment plan. Additional Instructions or Follow Up instructions: Please follow-up with your neurologist as soon as possible. Please follow-up with your primary care provider in 1 week. Please return to the emergency department if you develop any new weakness, seizure, slurred speech. No Smoking: If you smoke, Please STOP! Call for help. Follow-up with: Cheikh Metz ARNP [Primary Care Provider] -
--- NOTE | 2021-04-27 14:12 | DISCHARGE SUMMARY ---
Discharge Summary Admit Date: 04/26/21 Discharge Date: 04/27/21 Discharging Provider: Felix Talley Primary Care Provider: Cheikh Metz Code Status: Attempt Resuscitation Condition at Discharge: Stable Discharge Disposition: 01 Home, Self Care - DIAGNOSES Admission Diagnoses: Strokelike symptoms Seizure History of atrial fibrillation Dementia History of aortic valve replacement BPH Discharge Diagnoses with Status of Each Condition: Strokelike symptoms - resolved. Seizure - resolved. History of atrial fibrillation - stable. Dementia - stable. History of aortic valve replacement - stable. BPH - stable. - HPI History of Present Illness: This is a 81-year-old male with a past medical history significant for coronary artery disease status post CABG, aortic stenosis status post valve replacement, atrial fibrillation status post pacemaker, dementia who presents today after his found him minimally responsive at home this morning. The history is obtained from the patient's as he still appears somewhat confused and unable to provide a meaningful history. She states she went to physical therapy this morning at 10 AM and when she returned home, she found the patient quite lethargic and barely responsive. He was looking at her with a blank stare. She noticed that his mouth was covered with blood and that he had bit his tongue. She immediately called EMS and upon their arrival, they noticed that he had left-sided upper and lower extremity weakness and the concern was for a stroke. The patient's tells me that in hindsight, he appeared to be fatigued over the past couple of days. She states his last meal was yesterday evening. He has had no changes in his medications. No prior history of seizures or stroke. He did not take aspirin this morning as he normally does. He has never been on anticoagulation for his atrial fibrillation. The patient is normally independent and ambulates on his own. He does have early mild dementia. The patient currently denies any pain. He reports no dyspnea, chest pain. He is able to tell me he is at the hospital but cannot tell me why. In the emergency department, he underwent a CT of the head which showed no intracranial hemorrhage. 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 Neurology was contacted and he was not a candidate for TPA given he was outside of the window. Given the above findings, medicine was consulted for admission. We did discuss goals of care and the patient was unable to come up with a decision. I discussed this with him and his that we will make him a full code for the time being given he cannot decide. - HOSPITAL COURSE Hospital Course: The patient was placed in observation given his initial strokelike symptoms and concern for seizure. He was also initially still quite confused while in the emergency department. We suspect that he may have had Delbert's paralysis after a seizure given he had a tongue laceration. Initial CT showed no evidence of stroke. CTA of the head showed no significant stenosis. CTA of the neck showed moderate stenosis of the left internal carotid artery. He was given aspirin and started on Lipitor 40 mg in the evening. We could not obtain MRI due to the fact that he has a pacemaker. We did not obtain an echocardiogram as it is not available over the weekend. We did allow for permissive hypertension initially given the concern for possible stroke. His left upper and lower extremity weakness as well as facial droop resolved while in the emergency department. His confusion also improved throughout this hospitalization and he is now nearly back to baseline. He is conversing much more and his reports that his sense of humor has returned. We did repeat a CT of the head about 24 hours later to ensure there is no development of an infarct. 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 I did speak with neurology at [facility] to discuss if there would be a benefit for Keppra. They did recommend starting Keppra for the time being at 500 mg twice daily and to have the patient follow-up with his neurologist. I did discuss with the patient's regarding this recommendation and we will start him on Keppra on discharge. We also discussed discharging him on a statin but his informed me that he did not tolerated in the past and there was concern because of its interaction with diltiazem. I have recommended that she follow-up with his primary care provider or neurologist to discuss the benefit of initiating a statin once again. 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 - ALLERGIES Allergies/Adverse Reactions: Allergies Allergy/AdvReac Type Severity Reaction Status Date / Time iodine Allergy Anaphylaxis Verified 04/26/21 15:09 crab meat Allergy Anaphylaxis Uncoded 04/26/21 15:09 - MEDICATIONS Home Medications: Ambulatory Orders Medication Instructions Recorded Confirmed Alfuzosin HCl [Alfuzosin HCl ER] 1 tab PO DAILY 04/26/21 04/26/21 Aspirin [Aspirin EC] 1 tab PO DAILY 04/26/21 04/26/21 Cyanocobalamin (Vitamin B-12) 1 tab PO DAILY 04/26/21 04/26/21 [Vitamin B-12] Donepezil [Aricept] 10 mg PO DAILY 04/26/21 04/26/21 Escitalopram Oxalate 1 tab PO DAILY 04/26/21 04/26/21 Gabapentin [Neurontin] 100 mg PO DAILY 04/26/21 04/27/21 Latanoprost/Pf [Latanoprost 0.005% 1 drops EACHEYE DAILY 04/26/21 04/27/21 Eye Drop] Omeprazole [PriLOSEC] 1 tab PO DAILY 04/26/21 04/26/21 Senna [Senokot] 1 tab PO DAILY PRN 04/26/21 04/26/21 diltiaZEM CD [Cardizem Cd] 1 tab PO DAILY 04/26/21 04/26/21 traZODone [Desyrel] 100 mg PO DAILY 04/26/21 04/26/21 Gabapentin [Neurontin] 200 mg PO QPM 04/27/21 04/27/21 levETIRAcetam [Keppra] 500 mg PO BID #120 tablet 04/27/21 - PHYSICAL EXAM AT DISCHARGE General Appearance: positive: No acute distress, Alert Eyes Bilateral: positive: Normal inspection, Conjunctivae nml ENT: positive: ENT inspection nml Neck: positive: Nml inspection Respiratory: positive: No respiratory distress. negative: Wheezes, Rales Cardiovascular: positive: Regular rate & rhythm. negative: Tachycardia, Systolic murmur Abdomen: positive: Non-tender, No distention. negative: Tenderness Skin: positive: Warm, Dry Extremities: positive: No pedal edema Neurologic/Psychiatric: positive: Motor nml, Sensation nml, Disoriented to time, Other (No dysmetria noted.). negative: Disoriented to person, Disoriented to place, Weakness, Facial droop, Slurred/abnml speech - LABS Result Diagrams: 04/27/21 04:55 04/27/21 04:55 - DIAGNOSTIC IMAGING Diagnostic Imaging Results: Final report reviewed Diagnostic Imaging Results Comments: CTA of the head on April 26 showed no acute intracranial abnormality. Cerebral volume loss and chronic microvascular ischemic disease. No high-grade stenosis or occlusion in anterior or posterior circulations. CTA of the neck on April 26 showed moderate stenosis of the proximal left internal carotid artery. Mild stenosis of the proximal right internal carotid artery. No high-grade stenosis or occlusion in the vertebral arteries bilaterally. 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 Stable noncontrast head CT. - FOLLOW UP Follow Up: She was asked to follow-up with his neurologist as soon as possible and follow- up with his primary care provider was recommended in 1 week. - TIME SPENT Time Spent in Discharge (Minutes): 32
[2021-04-27 17:02] VITALS: BP 164/87
[2021-04-28] MEDS ORDERED: TAMSULOSIN 0.4 MG CAPSULE PO SCH (09:00)
== END 2021-04-27 17:07 | disposition home or self-care (01) ==
LOC: EDBD → EDUNIT# → ED 14:23 → SUPCPDRO 14:23 → MS2 16:43
PROVIDERS: ADMIT Internal Medicine; ATTEND Internal Medicine
DX: G81.94 Hemiplegia, unspecified affecting left nondominant side (principal); R29.810 Facial weakness; I65.22 Occlusion and stenosis of left carotid artery; R56.9 Unspecified convulsions; I48.91 Unspecified atrial fibrillation; F03.90 Unspecified dementia, unspecified severity, without behavioral disturbance, psychotic disturbance, mood disturbance, and anxiety; Z95.2 Presence of prosthetic heart valve; N40.0 Benign prostatic hyperplasia without lower urinary tract symptoms; I25.10 Atherosclerotic heart disease of native coronary artery without angina pectoris; Z95.1 Presence of aortocoronary bypass graft; Z95.0 Presence of cardiac pacemaker; R41.0 Disorientation, unspecified; Z20.822 Contact with and (suspected) exposure to COVID-19; Z79.82 Long term (current) use of aspirin; Z79.899 Other long term (current) drug therapy; S01.512A Laceration without foreign body of oral cavity, initial encounter; X58.XXXA Exposure to other specified factors, initial encounter; Y92.009 Unspecified place in unspecified non-institutional (private) residence as the place of occurrence of the external cause; Z86.73 Personal history of transient ischemic attack (TIA), and cerebral infarction without residual deficits; I10 Essential (primary) hypertension; E86.0 Dehydration
CPT/HCPCS: 36415; 70450; 70496; 70498; 71045; 80048; 80053; 81001; 83690; 83735; 84443; 85025; 85610; 87631; 93005; 99284; 99285; A9270; G0378; J7120; Q9967; 0202U; 81003; 87086

== ENCOUNTER 2021-10-05 15:54 | Outpatient (CLI) | payer MEDICARE, OTHER | END 2021-10-05 15:55 | disposition critical access hospital (66) | LOC: EMS 15:54 | DX: R55 Syncope and collapse (principal) | CPT/HCPCS: A0425; A0427 ==

== ENCOUNTER 2021-10-05 16:02 | Emergency (ER) | payer MEDICARE, OTHER ==
--- NOTE | 2021-10-05 16:10 | ED Physician Documentation ---
History of Present Illness - Stated complaint Stated Complaint: SYNCOPAL EPISODE - History obtained from History obtained from: Patient, EMS - Additonal information Additional information: This is a pleasantly demented 81-year-old gentleman who presents by ambulance after syncopal episode. Reportedly was out chopping wood with the and passed out. No clear evidence of injury. Patient is without complaints right now. He was noted to be orthostatic by EMS. He has a history of coronary disease status post bypass, aortic stenosis with history of valve replacement, not on anticoagulation so presumably biological valve. He has a pacemaker in place. Review of Systems Unable to obtain: Dementia PD PAST MEDICAL HISTORY - Past Medical History Cardiovascular: Hypertension, Coronary artery disease, Atrial fibrillation Neuro: Dementia : Benign prostate hypertrophy Psych: Depression - Past Surgical History Cardiovascular: CABG, Valve replacement, Pacemaker - Present Medications Home Medications: Ambulatory Orders Medication Instructions Recorded Confirmed Alfuzosin HCl [Alfuzosin HCl ER] 1 tab PO DAILY 04/26/21 04/26/21 Aspirin [Aspirin EC] 1 tab PO DAILY 04/26/21 04/26/21 Cyanocobalamin (Vitamin B-12) 1 tab PO DAILY 04/26/21 04/26/21 [Vitamin B-12] Donepezil [Aricept] 10 mg PO DAILY 04/26/21 04/26/21 Escitalopram Oxalate 1 tab PO DAILY 04/26/21 04/26/21 Gabapentin [Neurontin] 100 mg PO DAILY 04/26/21 04/27/21 Latanoprost/Pf [Latanoprost 0.005% 1 drops EACHEYE DAILY 04/26/21 04/27/21 Eye Drop] Omeprazole [PriLOSEC] 1 tab PO DAILY 04/26/21 04/26/21 Senna [Senokot] 1 tab PO DAILY PRN 04/26/21 04/26/21 diltiaZEM CD [Cardizem Cd] 1 tab PO DAILY 04/26/21 04/26/21 traZODone [Desyrel] 100 mg PO DAILY 04/26/21 04/26/21 Gabapentin [Neurontin] 200 mg PO QPM 04/27/21 04/27/21 levETIRAcetam [Keppra] 500 mg PO BID #120 tablet 04/27/21 - Allergies Allergies/Adverse Reactions: Allergies Allergy/AdvReac Type Severity Reaction Status Date / Time iodine Allergy Anaphylaxis Verified 10/05/21 16:14 crab meat Allergy Anaphylaxis Uncoded 10/05/21 16:14 - Social History Does the pt smoke?: No Smoking Status: Never smoker Does the pt drink ETOH?: No Does the pt have substance abuse?: Yes PD ED PE NORMAL - Vitals Vital signs reviewed: Yes - General General: No acute distress, Other (He is alert and oriented to person but not place time or events. He is correct on his age.) - HEENT HEENT: PERRL, EOMI - Neck Neck: Supple, no meningeal sign, No bony TTP - Cardiac Cardiac: RRR, No murmur - Respiratory Respiratory: No respiratory distress, Clear bilaterally - Abdomen Abdomen: Normal bowel sounds, Soft, Non tender - Back Back: No CVA TTP, No spinal TTP - Derm Derm: Normal color, Warm and dry - Extremities Extremities: No edema, No calf tenderness / cord - Neuro Neuro: No motor deficit, No sensory deficit, Normal speech Results - Vitals Vitals: Vital Signs - 24 hr 10/05/21 10/05/21 10/05/21 16:10 16:20 17:09 Temperature 36.7 C Heart Rate 86 72 Heart Rate [ 77 Sitting] Heart Rate [ 72 Standing] Heart Rate [ 74 Supine] Respiratory 15 12 Rate Blood Pressure 110/79 110/79 Blood Pressure 109/68 [Sitting] Blood Pressure 122/69 [Standing] Blood Pressure 107/82 H [Supine] O2 Saturation 96 94 Oxygen O2 Source Room air - EKG (time done) 1617 Rate: Rate (enter#) (74) Rhythm: Paced - Labs Labs: Laboratory Tests 10/05/21 10/05/21 16:28 16:28 WBC 5.6 RBC 4.42 L Hgb 14.2 Hct 41.1 L MCV 93.0 MCH 32.1 H MCHC 34.5 RDW 12.3 Plt Count 139 MPV 10.6 Neut # (Auto) 4.2 Lymph # (Auto) 0.9 L [place] # (Auto) 0.3 Eos # (Auto) 0.1 Baso # (Auto) 0.0 Absolute Nucleated RBC 0.00 Nucleated RBC % 0.0 Sodium 136 Potassium 4.1 Chloride 99 L Carbon Dioxide 28 Anion Gap 9.0 BUN 21 H Creatinine 1.8 H Estimated GFR (MDRD) 37 L Glucose 109 H Calcium 8.8 Total Bilirubin 0.8 AST 22 ALT 14 Alkaline Phosphatase 45 Total Protein 6.9 Albumin 4.2 Globulin 2.7 Albumin/Globulin Ratio 1.6 Lipase 35 PD MEDICAL DECISION MAKING - ED course ED course: 81-year-old gentleman with above past medical history had an episode of syncope today. He was orthostatic prehospital and he does have some worsening of his renal function suggesting dehydration here, previous creatinine was 1.4. After the administration of IV fluids he was no longer orthostatic noting that he was orthostatic prior to arrival for EMS. Jory supportive at the bedside updated. Departure - Departure Disposition: Home, Self Care Clinical Impression: Orthostatic hypotension Syncope Qualifiers: Syncope type: unspecified Qualified Code(s): R55 - Syncope and collapse Condition: Good Record reviewed to determine appropriate education?: Yes Instructions: ED Fainting Unkn Cause Comments: As discussed, his creatinine today is 1.8, BUN of 21. Given the passing out and the orthostatic hypotension prior to arrival the suggest dehydration as the cause of his passing out. He drink plenty of fluids. He should probably have a recheck of his labs in a week or so when [facility]. Return as needed.
[2021-10-05] MEDS ORDERED: SODIUM CHLORIDE 0.9% 1,000 ML IV STA (16:21)
[2021-10-05 16:36] LABS: BASOPHILS % (AUTO) 0.5 %; EOSINOPHILS # (AUTO) 0.1 10^3/uL (0.0-0.7); EOSINOPHILS % (AUTO) 2.1 %; HCT - HEMATOCRIT 41.1 % (42.0-52.0); HGB - HEMOGLOBIN 14.2 g/dL (14.0-18.0); LYMPHOCYTES # (AUTO) 0.9 10^3/uL (1.5-3.5); LYMPHOCYTES % (AUTO) 16.7 %; MEAN CORPUSCULAR HEMOGLOBIN 32.1 pg (27.0-31.0); MEAN CORPUSCULAR HGB CONC 34.5 g/dL (32.0-36.0); MEAN PLATELET VOLUME 10.6 fL (7.4-11.4); MONOCYTES # (AUTO) 0.3 10^3/uL (0.0-1.0); NEUTROPHILS # (AUTO) 4.2 10^3/uL (1.5-6.6); NEUTROPHILS % (AUTO) 74.5 %; PLT - PLATELET COUNT 139 10^3/uL (130-450); RED BLOOD COUNT 4.42 10^6/uL (4.70-6.10); RED CELL DISTRIBUTION WIDTH 12.3 % (12.0-15.0); WHITE BLOOD COUNT 5.6 x10^3/uL (4.8-10.8)
[2021-10-05 16:49] LABS: ALBUMIN 4.2 g/dL (3.2-5.5); ALBUMIN/GLOBULIN RATIO 1.6 (1.0-2.2); BILIRUBIN,TOTAL 0.8 mg/dL (0.2-1.0); CALCIUM 8.8 mg/dL (8.5-10.3); CREATININE 1.8 mg/dL (0.6-1.2); POTASSIUM 4.1 mmol/L (3.5-5.0); TOTAL PROTEIN 6.9 g/dL (6.7-8.2)
[2021-10-05 17:10] VITALS: BP 107/82
== END 2021-10-05 17:32 | disposition home or self-care (01) ==
LOC: EDUNIT# → ED 16:02
DX: I95.1 Orthostatic hypotension (principal); R55 Syncope and collapse; I10 Essential (primary) hypertension; I25.10 Atherosclerotic heart disease of native coronary artery without angina pectoris; Z95.1 Presence of aortocoronary bypass graft; Z95.2 Presence of prosthetic heart valve; Z95.0 Presence of cardiac pacemaker; Z79.82 Long term (current) use of aspirin; F03.90 Unspecified dementia, unspecified severity, without behavioral disturbance, psychotic disturbance, mood disturbance, and anxiety
CPT/HCPCS: 36415; 80053; 83690; 85025; 93005; 99281; 99284

== ENCOUNTER 2021-11-05 20:20 | Outpatient (CLI) | payer MEDICARE, OTHER | END 2021-11-05 20:21 | disposition critical access hospital (66) | LOC: EMS 20:20 | DX: R53.1 Weakness (principal) | CPT/HCPCS: A0425; A0427 ==

== ENCOUNTER 2021-11-05 20:31 | Emergency (ER) | payer MEDICARE, OTHER ==
--- NOTE | 2021-11-05 21:07 | ED Physician Documentation ---
PD HPI SYNCOPE - Stated complaint Stated Complaint: DIZZY/GLF - Chief complaint Chief Complaint: Neuro - History obtained from History obtained from: Patient, EMS - History of Present Illness Witnessed: Unwitnessed ( says she was in next room and heard him fall, went into room and he was semi-awake. Not clear if full LOC or not.) Timing - onset: Today Duration: Seconds Preceding symptoms: Light headed. No: Headache, Palpitations Associated symptoms: No: Chest pain, Dyspnea, Abdominal pain Contributing factors: Decreased PO intake (he and state that he does not take fluid intake very well. Had not had much today. Feeling of some lightheaded prior to the episode.) Injury occurred: No: Fell, Head injury, Neck injury Treatment [employer]: Fluids (EMS noted his BP low in 80s systolic and this has improved enroute.) Similar symptoms before: Diagnosis (had similar episode a month ago and attributed to low BP from volume depletion from less oral intake.) Recently seen: Emergency Dept (a month ago. Has not been to PMD since.) Review of Systems Constitutional: denies: Fever, Chills Nose: denies: Rhinorrhea / runny nose, Congestion Throat: denies: Sore throat Cardiac: denies: Chest pain / pressure, Palpitations Respiratory: denies: Dyspnea, Cough GI: denies: Abdominal Pain, Vomiting, Diarrhea, Bloody / black stool Neurologic: reports: Near syncope (episode today [employer], and had one a month ago.). denies: Focal weakness, Numbness PD PAST MEDICAL HISTORY - Past Medical History Past Medical History: Yes Cardiovascular: Hypertension (no recent change in meds. says he takes same BP med for awhile ("little purple pill"). Med list is Diltiazem but I could not find dose in records. ), Coronary artery disease, Atrial fibrillation Neuro: Dementia : Benign prostate hypertrophy Psych: Depression - Past Surgical History Past Surgical History: Yes Cardiovascular: CABG, Valve replacement, Pacemaker - Present Medications Home Medications: Ambulatory Orders Medication Instructions Recorded Confirmed Alfuzosin HCl [Alfuzosin HCl ER] 1 tab PO DAILY 04/26/21 04/26/21 Aspirin [Aspirin EC] 1 tab PO DAILY 04/26/21 04/26/21 Cyanocobalamin (Vitamin B-12) 1 tab PO DAILY 04/26/21 04/26/21 [Vitamin B-12] Donepezil [Aricept] 10 mg PO DAILY 04/26/21 04/26/21 Escitalopram Oxalate 1 tab PO DAILY 04/26/21 04/26/21 Gabapentin [Neurontin] 100 mg PO DAILY 04/26/21 04/27/21 Latanoprost/Pf [Latanoprost 0.005% 1 drops EACHEYE DAILY 04/26/21 04/27/21 Eye Drop] Omeprazole [PriLOSEC] 1 tab PO DAILY 04/26/21 04/26/21 Senna [Senokot] 1 tab PO DAILY PRN 04/26/21 04/26/21 diltiaZEM CD [Cardizem Cd] 1 tab PO DAILY 04/26/21 04/26/21 traZODone [Desyrel] 100 mg PO DAILY 04/26/21 04/26/21 Gabapentin [Neurontin] 200 mg PO QPM 04/27/21 04/27/21 levETIRAcetam [Keppra] 500 mg PO BID #120 tablet 04/27/21 - Allergies Allergies/Adverse Reactions: Allergies Allergy/AdvReac Type Severity Reaction Status Date / Time iodine Allergy Anaphylaxis Verified 11/05/21 20:45 crab meat Allergy Anaphylaxis Uncoded 11/05/21 20:45 - Social History Does the pt smoke?: No Smoking Status: Never smoker Does the pt drink ETOH?: No Does the pt have substance abuse?: Yes PD ED PE NORMAL - Vitals Vital signs reviewed: Yes - General General: Alert and oriented X 3, No acute distress, Well developed/nourished - HEENT HEENT: Pharynx benign. No: Moist mucous membranes - Neck Neck: Supple, no meningeal sign, No adenopathy - Cardiac Cardiac: Other (mild murmur left chest without mechanical sounds. ). No: RRR (irregular but rate controlled. ) - Respiratory Respiratory: Clear bilaterally - Abdomen Abdomen: Soft, Non tender - Back Back: No CVA TTP - Derm Derm: Warm and dry. No: Normal color (mild pallor) - Extremities Extremities: No tenderness to palpate, Normal ROM s pain, No edema, No calf tenderness / cord - Neuro Neuro: Alert and oriented X 3, tile classifier 2-12 intact, No motor deficit, No sensory deficit, Normal speech Eye Opening: Spontaneous Motor: Obeys Commands Verbal: Oriented GCS Score: 15 Results - Vitals Vitals: Vital Signs - 24 hr 11/05/21 11/05/21 11/05/21 20:42 21:40 22:43 Temperature 36.4 C L Heart Rate 72 70 Heart Rate [ 70 Sitting] Heart Rate [ 73 Standing] Heart Rate [ 70 Supine] Respiratory 17 14 Rate Blood Pressure 101/82 H 114/80 Blood Pressure 102/69 [Sitting] Blood Pressure 86/66 L [Standing] Blood Pressure 109/73 [Supine] O2 Saturation 98 96 11/05/21 23:15 Temperature Heart Rate 70 Heart Rate [ Sitting] Heart Rate [ Standing] Heart Rate [ Supine] Respiratory 12 Rate Blood Pressure 103/69 Blood Pressure [Sitting] Blood Pressure [Standing] Blood Pressure [Supine] O2 Saturation 95 Oxygen O2 Source Room air - Labs Labs: Laboratory Tests 11/05/21 11/05/21 21:52 21:52 WBC 15.3 H RBC 4.38 L Hgb 14.0 Hct 40.6 L MCV 92.7 MCH 32.0 H MCHC 34.5 RDW 12.6 Plt Count 150 MPV 10.7 Neut # (Auto) 13.5 H Lymph # (Auto) 0.9 L [place] # (Auto) 0.7 Eos # (Auto) 0.1 Baso # (Auto) 0.1 Absolute Nucleated RBC 0.00 Nucleated RBC % 0.0 Sodium 137 Potassium 4.1 Chloride 101 Carbon Dioxide 26 Anion Gap 10.0 BUN 26 H Creatinine 2.0 H Estimated GFR (MDRD) 32 L Glucose 98 Calcium 8.8 Magnesium 2.1 Total Bilirubin 0.8 AST 16 ALT 11 Alkaline Phosphatase 41 L Total Protein 6.6 L Albumin 4.0 Globulin 2.6 Albumin/Globulin Ratio 1.5 Lipase 42 PD MEDICAL DECISION MAKING - ED course Complexity details: reviewed results, considered differential, d/w patient ED course: Likely would benefit from reduction in dose of BP med. HR seems controlled. Departure - Departure Disposition: 01 Home, Self Care Clinical Impression: Near syncope, Dehydration, Transient hypotension, Elevated serum creatinine Condition: Stable Record reviewed to determine appropriate education?: Yes Instructions: ED Dehydration Follow-Up: Cheikh Metz ARNP [Primary Care Provider] - Comments: Our records here do not show the dose of the diltiazem blood pressure medicine that you take. We can probably get that information during the day from your pharmacy or your provider. At this point I would urge to stay well-hydrated through the day. Contact your primary care provider to see if they would want to continue you on the lower dose of the diltiazem blood pressure/heart rate medicine so it has less effect on your blood pressure. For now I would hold your diltiazem for a couple of days to ensure your blood pressure improve as well. Follow-up with your primary care next week, call for an appointment. Discharge Date/Time: 11/06/21 01:20
[2021-11-05] MEDS ORDERED: SODIUM CHLORIDE 0.9% 1,000 ML IV STA (21:38)
[2021-11-05 22:02] LABS: BASOPHILS # (AUTO) 0.1 10^3/uL (0.0-0.1); BASOPHILS % (AUTO) 0.4 %; EOSINOPHILS # (AUTO) 0.1 10^3/uL (0.0-0.7); EOSINOPHILS % (AUTO) 0.7 %; HCT - HEMATOCRIT 40.6 % (42.0-52.0); LYMPHOCYTES # (AUTO) 0.9 10^3/uL (1.5-3.5); LYMPHOCYTES % (AUTO) 5.7 %; MEAN CORPUSCULAR HGB CONC 34.5 g/dL (32.0-36.0); MEAN CORPUSCULAR VOLUME 92.7 fL (80.0-94.0); MEAN PLATELET VOLUME 10.7 fL (7.4-11.4); MONOCYTES # (AUTO) 0.7 10^3/uL (0.0-1.0); MONOCYTES % (AUTO) 4.8 %; NEUTROPHILS # (AUTO) 13.5 10^3/uL (1.5-6.6); NEUTROPHILS % (AUTO) 87.9 %; PLT - PLATELET COUNT 150 10^3/uL (130-450); RED BLOOD COUNT 4.38 10^6/uL (4.70-6.10); RED CELL DISTRIBUTION WIDTH 12.6 % (12.0-15.0); WHITE BLOOD COUNT 15.3 x10^3/uL (4.8-10.8)
[2021-11-05 22:14] LABS: ALBUMIN/GLOBULIN RATIO 1.5 (1.0-2.2); BILIRUBIN,TOTAL 0.8 mg/dL (0.2-1.0); CALCIUM 8.8 mg/dL (8.5-10.3); MAGNESIUM 2.1 mg/dL (1.7-2.8); POTASSIUM 4.1 mmol/L (3.5-5.0); TOTAL PROTEIN 6.6 g/dL (6.7-8.2)
[2021-11-05 23:16] VITALS: BP 103/69
== END 2021-11-06 01:20 | disposition home or self-care (01) ==
LOC: EDUNIT# → ED 20:31
DX: E86.0 Dehydration (principal); I95.9 Hypotension, unspecified; R74.8 Abnormal levels of other serum enzymes; I10 Essential (primary) hypertension; Z95.1 Presence of aortocoronary bypass graft; I48.91 Unspecified atrial fibrillation; Z95.0 Presence of cardiac pacemaker
CPT/HCPCS: 36415; 80053; 83690; 83735; 85025; 96360; 96361; 99283

== ENCOUNTER 2022-09-13 17:34 | Outpatient (CLI) | payer MEDICARE, OTHER | END 2022-09-13 17:35 | disposition critical access hospital (66) | LOC: EMS 17:34 | DX: R55 Syncope and collapse (principal); R42 Dizziness and giddiness; I95.9 Hypotension, unspecified | CPT/HCPCS: A0425; A0427 ==

== ENCOUNTER 2022-09-13 17:44 | Emergency (ER) | payer MEDICARE, OTHER ==
[2022-09-13 18:31] LABS: BASOPHILS % (AUTO) 0.6 %; EOSINOPHILS # (AUTO) 0.1 10^3/uL (0.0-0.7); EOSINOPHILS % (AUTO) 1.2 %; HCT - HEMATOCRIT 40.3 % (42.0-52.0); HGB - HEMOGLOBIN 13.6 g/dL (14.0-18.0); LYMPHOCYTES # (AUTO) 0.9 10^3/uL (1.5-3.5); MEAN CORPUSCULAR HEMOGLOBIN 31.8 pg (27.0-31.0); MEAN CORPUSCULAR HGB CONC 33.7 g/dL (32.0-36.0); MEAN CORPUSCULAR VOLUME 94.2 fL (80.0-94.0); MEAN PLATELET VOLUME 10.5 fL (7.4-11.4); MONOCYTES # (AUTO) 0.3 10^3/uL (0.0-1.0); MONOCYTES % (AUTO) 4.1 %; NEUTROPHILS # (AUTO) 5.4 10^3/uL (1.5-6.6); NEUTROPHILS % (AUTO) 80.8 %; PLT - PLATELET COUNT 149 10^3/uL (130-450); RED BLOOD COUNT 4.28 10^6/uL (4.70-6.10); RED CELL DISTRIBUTION WIDTH 13.2 % (12.0-15.0); WHITE BLOOD COUNT 6.6 x10^3/uL (4.8-10.8)
--- NOTE | 2022-09-13 18:39 | XRAY Report ---
PROCEDURE: Chest 1 View X-Ray INDICATIONS: Chest Pain TECHNIQUE: One view of the chest was acquired. COMPARISON: Chest radiograph 04/26/2021 FINDINGS: Surgical changes and devices: Left chest pacemaker. Median sternotomy wires. Cardiac valve replaceme nt. Lungs and pleura: No pleural effusions or pneumothorax. Lungs are clear. Mediastinum: Mediastinal contours appear normal. Heart size is normal. Bones and chest wall: No suspicious bony lesions. Overlying soft tissues appear unremarkable. IMPRESSION: No acute cardiopulmonary abnormality. Reviewed by: Norberto Miguel MD on 09/13/2022 6:38 PM PDT Approved by: Norberto Miguel MD on 09/13/2022 6:38 PM PDT Station ID: [id number]
[2022-09-13 18:48] LABS: ALBUMIN 3.9 g/dL (3.2-5.5); ALBUMIN/GLOBULIN RATIO 1.4 (1.0-2.2); BILIRUBIN,TOTAL 0.6 mg/dL (0.2-1.0); CALCIUM 8.7 mg/dL (8.5-10.3); CREATININE 1.8 mg/dL (0.6-1.2); TOTAL PROTEIN 6.7 g/dL (6.7-8.2)
--- NOTE | 2022-09-13 19:35 | ED Physician Documentation ---
History of Present Illness - Stated complaint Stated Complaint: SYNCOPAL - Chief complaint Chief Complaint: Neuro - History obtained from History obtained from: Patient, Family, EMS - Additonal information Additional information: The patient comes to the emergency department with EMS and his for chief complaint of syncopal episode. The patient was at home, up and about, when he suddenly began to feel lightheaded as it was going to faint. He was able to sit down and lost consciousness briefly. He did not fall or injure himself in any way. The patient was only out for a few seconds according to , after which he awakened. Patient denies any chest pain, shortness of breath, palpitations, or nausea. He has not been ill with anything recently. The patient has had this happen a number of times before, and previously, per , it has been because the patient hardly drinks any water and was very dehydrated. No other complaints at this time. The patient states he is feeling "fine" now. When medics picked the patient up, he was pale and hypotensive. He was started on IV fluids en route. Review of Systems Ten Systems: 10 systems reviewed and negative Constitutional: reports: Reviewed and negative Eyes: reports: Reviewed and negative Ears: reports: Reviewed and negative Nose: reports: Reviewed and negative Throat: reports: Reviewed and negative Cardiac: reports: Reviewed and negative Respiratory: reports: Reviewed and negative GI: reports: Reviewed and negative : reports: Reviewed and negative Skin: reports: Reviewed and negative Musculoskeletal: reports: Reviewed and negative Neurologic: reports: Syncope Psychiatric: reports: Reviewed and negative Endocrine: reports: Reviewed and negative Immunocompromised: reports: Reviewed and negative PD PAST MEDICAL HISTORY - Past Medical History Cardiovascular: Hypertension, Coronary artery disease, Atrial fibrillation Neuro: Dementia : Benign prostate hypertrophy Psych: Depression - Past Surgical History Past Surgical History: Yes Cardiovascular: CABG, Valve replacement, Pacemaker - Present Medications Home Medications: Ambulatory Orders Medication Instructions Recorded Confirmed Alfuzosin HCl [Alfuzosin HCl ER] 1 tab PO DAILY 04/26/21 09/13/22 Aspirin [Aspirin EC] 1 tab PO DAILY 04/26/21 09/13/22 Cyanocobalamin (Vitamin B-12) 1 tab PO DAILY 04/26/21 09/13/22 [Vitamin B-12] Donepezil [Aricept] 10 mg PO DAILY 04/26/21 09/13/22 Escitalopram Oxalate 1 tab PO DAILY 04/26/21 09/13/22 Gabapentin [Neurontin] 100 mg PO DAILY 04/26/21 09/13/22 Latanoprost/Pf [Latanoprost 0.005% 1 drops EACHEYE DAILY 04/26/21 09/13/22 Eye Drop] Omeprazole [PriLOSEC] 1 tab PO DAILY 04/26/21 09/13/22 Senna [Senokot] 1 tab PO DAILY PRN 04/26/21 09/13/22 diltiaZEM CD [Cardizem Cd] 1 tab PO DAILY 04/26/21 09/13/22 traZODone [Desyrel] 100 mg PO DAILY 04/26/21 09/13/22 Gabapentin [Neurontin] 200 mg PO QPM 04/27/21 09/13/22 levETIRAcetam [Keppra] 500 mg PO BID #120 tablet 04/27/21 09/13/22 Pravastatin [Pravachol] 10 mg PO DAILY 09/13/22 09/13/22 - Allergies Allergies/Adverse Reactions: Allergies Allergy/AdvReac Type Severity Reaction Status Date / Time iodine Allergy Anaphylaxis Verified 11/05/21 20:45 crab meat Allergy Anaphylaxis Uncoded 11/05/21 20:45 - Social History Does the pt smoke?: No Smoking Status: Never smoker Does the pt drink ETOH?: No Does the pt have substance abuse?: Yes PD ED PE NORMAL - Vitals Vital signs reviewed: Yes - General General: Alert and oriented X 3, No acute distress, Well developed/nourished - HEENT HEENT: Atraumatic, PERRL, EOMI, Moist mucous membranes - Neck Neck: Supple, no meningeal sign, No bony TTP - Cardiac Cardiac: RRR, No murmur, Strong equal pulses - Respiratory Respiratory: No respiratory distress, Clear bilaterally - Abdomen Abdomen: Soft, Non tender, Non distended - Derm Derm: Normal color, Warm and dry, No rash - Extremities Extremities: No deformity, No edema - Neuro Neuro: Alert and oriented X 3 - Psych Psych: Normal mood, Normal affect Results - Vitals Vitals: Oxygen O2 Source Room air - EKG (time done) 1751 Rate: Rate (enter#) (72) Rhythm: Paced Computer interpretation: Agree with computer - Labs Labs: Laboratory Tests 09/13/22 09/13/22 09/13/22 18:21 18:21 18:21 WBC 6.6 RBC 4.28 L Hgb 13.6 L Hct 40.3 L MCV 94.2 H MCH 31.8 H MCHC 33.7 RDW 13.2 Plt Count 149 MPV 10.5 Neut # (Auto) 5.4 Lymph # (Auto) 0.9 L [place] # (Auto) 0.3 Eos # (Auto) 0.1 Baso # (Auto) 0.0 Absolute Nucleated RBC 0.00 Nucleated RBC % 0.0 Sodium 136 Potassium 4.0 Chloride 102 Carbon Dioxide 26 Anion Gap 8.0 BUN 20 Creatinine 1.8 H Estimated GFR (MDRD) 36 L Glucose 108 H Calcium 8.7 Total Bilirubin 0.6 AST 21 ALT 13 Alkaline Phosphatase 44 Troponin I High Sens 12.4 B-Natriuretic Peptide Total Protein 6.7 Albumin 3.9 Globulin 2.8 Albumin/Globulin Ratio 1.4 Lipase 37 09/13/22 18:21 WBC RBC Hgb Hct MCV MCH MCHC RDW Plt Count MPV Neut # (Auto) Lymph # (Auto) [place] # (Auto) Eos # (Auto) Baso # (Auto) Absolute Nucleated RBC Nucleated RBC % Sodium Potassium Chloride Carbon Dioxide Anion Gap BUN Creatinine Estimated GFR (MDRD) Glucose Calcium Total Bilirubin AST ALT Alkaline Phosphatase Troponin I High Sens B-Natriuretic Peptide 88 Total Protein Albumin Globulin Albumin/Globulin Ratio Lipase PD MEDICAL DECISION MAKING - ED course Complexity details: reviewed results, re-evaluated patient, considered differential, d/w patient, d/w family ED course: Patient was well-appearing upon my evaluation in the emergency department. He was worked up with labs, EKG, and chest x-ray, all of which were unremarkable. The patient was feeling much better and was able to drink a large amount of water in the emergency department, on top of the IV fluids he received. He and wish to be discharged home. He has a longstanding history of similar episodes and I felt this was reasonable, given the negative work-up. I have reiterated to him the importance of drinking plenty of fluids. We have discussed the usual indications for return. Departure - Departure Disposition: 01 Home, Self Care Clinical Impression: Syncope Qualifiers: Syncope type: unspecified Qualified Code(s): R55 - Syncope and collapse Condition: Stable Instructions: ED Syncope Vasovagal Comments: Your labs Look good, other than some chronic slowing of the kidneys. Your EKG shows the expected findings, given that you have a pacemaker, and your pacemaker appears to be working well. Your chest x-ray is clear. At this point in time, you have been hydrated, both with IV fluids and with water by mouth. It is important that you continue to drink plenty of fluids when she get home to be sure that you are fully hydrated, as this will decrease the chances of you having another fainting episode. Please follow-up with your primary care physician and your missile inspector preflight as planned. Discharge Date/Time: 09/13/22 19:49
[2022-09-13 19:49] VITALS: BP 104/80
== END 2022-09-13 19:49 | disposition home or self-care (01) ==
LOC: EDUNIT# → ED 17:44
DX: R55 Syncope and collapse (principal)
CPT/HCPCS: 36415; 80053; 83690; 83880; 84484; 85025; 93005; 99283; 99284